=== PATIENT | female | born 1975 | race Caucasian/White ===

== ENCOUNTER → 2021-03-08 08:38 | Outpatient (BNVA) | payer MEDICARE, OTHER, SELFPAY | PROVIDERS: Visit Provider Psychiatry & Neurology Psychiatry | DX: F43.12 Post-traumatic stress disorder, chronic (principal); F41.1 Generalized anxiety disorder; F33.1 Major depressive disorder, recurrent, moderate; F12.20 Cannabis dependence, uncomplicated | CPT/HCPCS: 99204 ==

== ENCOUNTER → 2021-04-21 09:48 | Outpatient (BNVA) | payer MEDICARE, OTHER, SELFPAY | PROVIDERS: Visit Provider Psychiatry & Neurology Psychiatry | DX: F33.1 Major depressive disorder, recurrent, moderate (principal); F41.1 Generalized anxiety disorder; F43.12 Post-traumatic stress disorder, chronic; F12.20 Cannabis dependence, uncomplicated | CPT/HCPCS: 99213 ==

== ENCOUNTER → 2021-10-11 12:40 | Outpatient (BNVA) | payer MEDICARE, OTHER, SELFPAY | PROVIDERS: Visit Provider Psychiatry & Neurology Psychiatry | DX: F33.1 Major depressive disorder, recurrent, moderate (principal); F41.1 Generalized anxiety disorder; F43.12 Post-traumatic stress disorder, chronic; F12.20 Cannabis dependence, uncomplicated | CPT/HCPCS: 99213 ==

== ENCOUNTER → 2022-01-04 10:42 | Outpatient (BNVA) | payer MEDICARE, OTHER, SELFPAY | PROVIDERS: Visit Provider Psychiatry & Neurology Psychiatry | DX: F33.1 Major depressive disorder, recurrent, moderate (principal); F41.1 Generalized anxiety disorder; F43.12 Post-traumatic stress disorder, chronic; F12.20 Cannabis dependence, uncomplicated | CPT/HCPCS: 99213 ==

== ENCOUNTER → 2022-06-09 12:46 | Outpatient (BNVA) | payer MEDICARE, OTHER, SELFPAY | PROVIDERS: Visit Provider Podiatrist Foot & Ankle Surgery | DX: Q82.8 Other specified congenital malformations of skin (principal); M21.6X1 Other acquired deformities of right foot; M21.6X2 Other acquired deformities of left foot | CPT/HCPCS: 17110; 99204 ==

== ENCOUNTER → 2023-08-16 14:33 | Outpatient (BNVA) | payer MEDICARE, OTHER, SELFPAY | PROVIDERS: PCP Nurse Practitioner Family; Visit Provider Nurse Practitioner Family | DX: E04.9 Nontoxic goiter, unspecified (principal); Z79.899 Other long term (current) drug therapy; Z13.6 Encounter for screening for cardiovascular disorders; M77.9 Enthesopathy, unspecified | CPT/HCPCS: 73630; 80053; 80061; 81003; 83036; 83721; 84439; 84443; 84481; 85025 ==

== ENCOUNTER 2023-08-27 13:09 | Outpatient (CLI) | payer MEDICARE, OTHER, SELFPAY ==
--- NOTE | 2023-08-27 13:30 | US_ITS ---
WS: [email or web address] THYROID ULTRASOUND HISTORY: E04.9 - Nontoxic goiter, unspecified COMPARISON: None available. Right lobe: 3.1 cm x 3.0 cm x 6.4 cm (w x ap x l). Volume: 31.3 cm3. Enlarged thyroid. The entire RIGHT lobe is nodular in appearance with slight increased vascularity. C onfluent multinodular enlargement of the thyroid with echogenicity appearing very isoechoic. Left lobe: 1.7 cm x 1.5 cm x 4.3 cm (w x ap x l). Volume: 5.9 cm3. Normal sized gland. Heterogeneity throughout the gland. Isthmus: 0.7 cm. IMPRESSION: 1. Markedly enlarged RIGHT thyroid with multiple confluent nodules. There is no one discrete nodule the entire thyroid lobe is nodular consistent with a goiter. 2. Normal size LEFT thyroid lobe.
== END 2023-08-27 13:10 | disposition home or self-care (01) ==
LOC: RAD 13:11
PROVIDERS: PCP Nurse Practitioner Family; Visit Provider Nurse Practitioner Family
DX: E04.2 Nontoxic multinodular goiter (principal); Z13.6 Encounter for screening for cardiovascular disorders; Z79.899 Other long term (current) drug therapy
CPT/HCPCS: 76536

== ENCOUNTER → 2023-08-29 16:31 | Outpatient (BNVA) | payer MEDICARE, OTHER, SELFPAY | PROVIDERS: PCP Nurse Practitioner Family; Visit Provider Nurse Practitioner Family | DX: R31.9 Hematuria, unspecified (principal) | CPT/HCPCS: 81003; 87077; 87086; 87184 ==

== ENCOUNTER → 2023-09-12 10:16 | Outpatient (BNVA) | payer MEDICARE, OTHER, SELFPAY | PROVIDERS: PCP Nurse Practitioner Family; Visit Provider Podiatrist Foot & Ankle Surgery | DX: Q82.8 Other specified congenital malformations of skin; M21.6X1 Other acquired deformities of right foot; M21.6X2 Other acquired deformities of left foot | CPT/HCPCS: 99213 ==

== ENCOUNTER → 2023-10-11 09:59 | Outpatient (BNVA) | payer MEDICARE, OTHER, SELFPAY | PROVIDERS: PCP Nurse Practitioner Family; Visit Provider Podiatrist Foot & Ankle Surgery | DX: M76.62 Achilles tendinitis, left leg; M21.6X1 Other acquired deformities of right foot; M21.6X2 Other acquired deformities of left foot | CPT/HCPCS: 99213 ==

== ENCOUNTER → 2023-10-18 10:11 | Outpatient (BNVA) | payer MEDICARE, OTHER, SELFPAY | PROVIDERS: PCP Nurse Practitioner Family; Referring Provider Nurse Practitioner Family; Visit Provider Internal Medicine | DX: Z79.899 Other long term (current) drug therapy (principal); E04.2 Nontoxic multinodular goiter; E04.9 Nontoxic goiter, unspecified; K21.9 Gastro-esophageal reflux disease without esophagitis; R09.82 Postnasal drip | CPT/HCPCS: 99204 ==

== ENCOUNTER → 2024-01-14 11:01 | Outpatient (BNVA) | payer MEDICARE, OTHER, SELFPAY | PROVIDERS: PCP Nurse Practitioner Family; Visit Provider Nurse Practitioner Family | DX: D23.61 Other benign neoplasm of skin of right upper limb, including shoulder (principal); D23.71 Other benign neoplasm of skin of right lower limb, including hip; D22.4 Melanocytic nevi of scalp and neck; L91.8 Other hypertrophic disorders of the skin; L81.4 Other melanin hyperpigmentation; L57.8 Other skin changes due to chronic exposure to nonionizing radiation | CPT/HCPCS: 99203 ==

== ENCOUNTER → 2024-02-07 13:56 | Outpatient (BNVA) | payer MEDICARE, OTHER, SELFPAY | PROVIDERS: PCP Nurse Practitioner Family; Visit Provider Nurse Practitioner Family | DX: R10.9 Unspecified abdominal pain (principal) | CPT/HCPCS: 80053; 83036; 85025 ==

== ENCOUNTER → 2024-02-12 10:44 | Outpatient (BNVA) | payer MEDICARE, OTHER, SELFPAY | PROVIDERS: PCP Nurse Practitioner Family; Visit Provider Nurse Practitioner Family | DX: R10.84 Generalized abdominal pain (principal) | CPT/HCPCS: 74018 ==

== ENCOUNTER 2024-02-19 08:20 | Outpatient (CLI) | payer MEDICARE, OTHER, SELFPAY ==
--- NOTE | 2024-02-19 08:45 | MR_ITS ---
WS: [email or web address] MRI/MRCP OF THE ABDOMEN WITHOUT GADOLINIUM ENHANCEMENT TECHNIQUE: Coronal T2 Fase BH, Axial T2 Fase BH, Axial T2 FS BH, Zxial 3D James BH, Axial DWI BH, 2D MRCP Radial BH, 3D MRCP (Resp), and Axial 3D Dyn BH Post sequences. CLINICAL INFORMATION: R10.9 - Unspecified abdominal pain COMPARISON: CT 02/15/2023 FINDINGS: No hydronephrosis in either kidney. A few small renal cysts the largest LEFT kidney measuring 1.5 cm. LEFT adrenal adenoma measuring 2.3 cm. Hepatomegaly with diffuse fatty infiltration of the liver. Nor mal pancreas. Normal common bile duct. No intrahepatic biliary ductal dilatation. Normal gallbladder. Normal GE junction. Normal portal vein and splenic vein. Normal caliber upper abdominal aorta. Nonobs tructing renal calculi better visualized on the prior CT. No other suspicious findings. MR/MR abdomen wo/w con* [id number] Impression: 1. Hepatomegaly with diffuse fatty infiltration of the liver. 2. LEFT adrenal adenoma measuring 2.3 cm. 3. Bilateral renal cysts the largest LEFT kidney measuring 1.4 cm. No hydronep hrosis in either kidney. 4. No other acute findings.
[2024-02-19] MEDS: gadobenate dimeglumine 20 mL vial IV (10:25)
== END 2024-02-19 08:21 | disposition home or self-care (01) ==
LOC: RAD 08:20
PROVIDERS: PCP Nurse Practitioner Family; Visit Provider Nurse Practitioner Family
DX: R10.9 Unspecified abdominal pain (principal); R16.0 Hepatomegaly, not elsewhere classified; D35.02 Benign neoplasm of left adrenal gland; K76.0 Fatty (change of) liver, not elsewhere classified; Q61.02 Congenital multiple renal cysts
CPT/HCPCS: 74183; A9577

== ENCOUNTER 2024-03-05 10:11 | Outpatient (CLI) | payer MEDICARE, OTHER, SELFPAY ==
--- NOTE | 2024-03-05 10:20 | MM_ITS ---
WS: [email or web address] BILATERAL SCREENING DIGITAL TOMOSYNTHESIS MAMMOGRAM WITH CAD HISTORY: Z12.31 - Encounter for screening mammogram for malignant ... COMPARISON: 04/03/2019 Bilateral CC and MLO views with tomosynthesis and synthetic mammography submitted. Computer aided det ection analyzed. Breast composition: There are scattered areas of fibroglandular density. No suspicious masses, microc alcifications or architectural distortion. MM/[place] [id number] IMPRESSION: BI-RADS: 1-Negative FOLLOW UP: 1 Year Follow-up
== END 2024-03-05 10:12 | disposition home or self-care (01) ==
LOC: MOBLMAM 10:18
PROVIDERS: PCP Nurse Practitioner Family; Visit Provider Nurse Practitioner Family
DX: Z12.31 Encounter for screening mammogram for malignant neoplasm of breast (principal)
CPT/HCPCS: 77063; 77067

== ENCOUNTER 2024-03-24 12:17 | Oncology outpatient (recurring) (ONCR) | payer MEDICARE, OTHER, SELFPAY | END 2024-03-29 23:59 | disposition home or self-care (01) | PROVIDERS: PCP Nurse Practitioner Family; Visit Provider Internal Medicine Medical Oncology | DX: Z53.9 Procedure and treatment not carried out, unspecified reason (principal); D35.02 Benign neoplasm of left adrenal gland; Z87.891 Personal history of nicotine dependence; R10.9 Unspecified abdominal pain; R11.2 Nausea with vomiting, unspecified; R53.83 Other fatigue | CPT/HCPCS: 99204 ==

== ENCOUNTER → 2024-04-17 09:47 | Outpatient (BNVA) | payer MEDICARE, OTHER, SELFPAY | PROVIDERS: PCP Nurse Practitioner Family; Visit Provider Nurse Practitioner Family | DX: R53.83 Other fatigue (principal); M25.50 Pain in unspecified joint | CPT/HCPCS: 80053; 82607; 83550; 83735; 84443; 85025; 85651; 86140 ==

== ENCOUNTER → 2024-05-07 10:05 | Outpatient (BNVA) | payer MEDICARE, OTHER, SELFPAY | PROVIDERS: PCP Nurse Practitioner Family; Visit Provider Internal Medicine | DX: E04.9 Nontoxic goiter, unspecified (principal); E11.69 Type 2 diabetes mellitus with other specified complication; Z79.899 Other long term (current) drug therapy; E78.5 Hyperlipidemia, unspecified; D35.02 Benign neoplasm of left adrenal gland; E07.9 Disorder of thyroid, unspecified; R45.86 Emotional lability; Z79.84 Long term (current) use of oral hypoglycemic drugs | CPT/HCPCS: 36415; 80053; 82088; 82670; 83001; 83002; 84144; 84244; 84439; 84443; 84480; 99214 ==

== ENCOUNTER → 2024-05-16 11:45 | Outpatient (BNVA) | payer MEDICARE, OTHER, SELFPAY | PROVIDERS: PCP Nurse Practitioner Family; Visit Provider Internal Medicine | DX: E11.69 Type 2 diabetes mellitus with other specified complication (principal); E04.9 Nontoxic goiter, unspecified; E78.5 Hyperlipidemia, unspecified; D35.02 Benign neoplasm of left adrenal gland | CPT/HCPCS: 82384; 82530; 82570; 83835 ==

== ENCOUNTER → 2024-06-18 11:20 | Outpatient (BNVA) | payer MEDICARE, OTHER, SELFPAY | PROVIDERS: PCP Nurse Practitioner Family; Visit Provider Internal Medicine | DX: E04.9 Nontoxic goiter, unspecified (principal); E28.2 Polycystic ovarian syndrome | CPT/HCPCS: 99214 ==

== ENCOUNTER 2024-08-18 13:26 | Oncology outpatient (recurring) (ONCR) | payer MEDICARE, OTHER, SELFPAY ==
--- NOTE | 2024-08-18 13:45 | US_ITS ---
WS: [email or web address] THYROID ULTRASOUND HISTORY: thyroid goiter COMPARISON: 08/27/2023 Right lobe: 2.7 cm x 2.8 cm x 5.9 cm (w x ap x l). Volume: 21.6 cm3. Enlarged heterogeneous nodular thyroid. Predominant solid nodule with scattered cystic areas. There a re multiple confluent nodules throughout the gland without increased vascularity. Partially obscured nodular borders. Very similar to the prior study. Left lobe: 1.8 cm x 1.4 cm x 4.3 cm (w x ap x l). Volume: 5.1 cm3. Normal sized gland. There are multiple small cysts consistent with colloid nodules scattered througho ut the gland. Isthmus: 0.5 cm. US/US thyroid [id number] IMPRESSION: 1. Enlarged multinodular RIGHT thyroid gland. Very similar in appearance to th e prior study. Probably representing a goiter. No calcifications in these nodul es are not hypoechoic. 2. Multiple colloid cysts in the LEFT thyroid.
== END 2024-08-29 23:59 | disposition home or self-care (01) ==
PROVIDERS: PCP Nurse Practitioner Family; Visit Provider Internal Medicine Medical Oncology
DX: E04.9 Nontoxic goiter, unspecified (principal); E04.1 Nontoxic single thyroid nodule; E04.2 Nontoxic multinodular goiter
CPT/HCPCS: 76536

== ENCOUNTER 2024-08-22 11:10 | Outpatient (CLI) | payer MEDICARE, OTHER, SELFPAY ==
--- NOTE | 2024-08-22 11:13 | XR_ITS ---
WS: [email or web address] Lumbar spine, 6 views including AP, lateral in flexion, extension and neutral position in both obliqu es, 08/22/2024 Clinical Data: S39.012A - Strain of muscle, fascia and tendon of lower b... Comparison: None. Findings: No compression fractures or subluxation is seen. There is narrowing of the L5-S1 disc space. The tra nsverse processes and SI joints are normal. On the oblique films there is no spondylolysis. On flexion and extension there is no instability. The re are bilateral calcifications overlying the kidneys. XR/XR lumbar spine 6V w f/e [id number] Impression: 1. Degenerative disc narrowing at L5-S1. 2. No spondylolysis on oblique films. 3. No instability on flexion or extension. 4. Probable bilateral renal calculi.
--- NOTE | 2024-08-22 11:13 | XR_ITS ---
WS: [email or web address] Thoracic spine, 3 views, 08/22/2024 Clinical Data: S39.012A - Strain of muscle, fascia and tendon of lower b... Comparison: None. Findings: No compression fractures are seen. The disc heights are normal. The Spinal regions are normal. There is minimal osteoarthritis of the thoracic vertebral bodies. 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
== END 2024-08-22 11:11 | disposition home or self-care (01) ==
LOC: RAD 11:12
PROVIDERS: PCP Nurse Practitioner Family; Visit Provider Nurse Practitioner Family
DX: M51.27 Other intervertebral disc displacement, lumbosacral region (principal); N20.0 Calculus of kidney; E04.9 Nontoxic goiter, unspecified; D35.02 Benign neoplasm of left adrenal gland; K21.9 Gastro-esophageal reflux disease without esophagitis; R09.82 Postnasal drip; R45.86 Emotional lability
CPT/HCPCS: 72072; 72114; 99214

== ENCOUNTER 2024-08-30 06:30 | Outpatient (RCR) | payer MEDICARE, OTHER, SELFPAY | END 2024-09-26 23:59 | disposition home or self-care (01) | LOC: WPT 06:30 | PROVIDERS: Visit Provider Nurse Practitioner Family | DX: M54.9 Dorsalgia, unspecified (principal); G89.29 Other chronic pain | CPT/HCPCS: 97110; 97162 ==

== ENCOUNTER → 2024-10-08 13:33 | Outpatient (BNVA) | payer MEDICARE, OTHER, SELFPAY | PROVIDERS: Visit Provider Nurse Practitioner Women's Health | DX: Z01.419 Encounter for gynecological examination (general) (routine) without abnormal findings (principal); N94.9 Unspecified condition associated with female genital organs and menstrual cycle | CPT/HCPCS: 87624 ==

== ENCOUNTER 2024-10-30 10:55 | Outpatient (CLI) | payer MEDICARE, OTHER, SELFPAY ==
[2024-10-30 11:52] LABS: Alanine Aminotransferase 45 U/L (0-33); Albumin Level 4.5 g/dL (3.5-5.2); Alkaline Phosphatase 78 U/L (35-105); Anion Gap 15.3 (5-19); Aspartate Amino Transferase 38 U/L (0-32); Blood Urea Nitrogen 6 mg/dL (6-20); Calcium 9.4 mg/dL (8.5-10.5); Carbon Dioxide 26 mmol/L (22-29); Chloride 102 mmol/L (98-107); Free T4 Free Thyroxine 1.16 ng/dL (0.82-1.77); Globulin 3.1 g/dL (1.3-4.6); Glomerular Filtration Rate 132.2 mL/min (90-130); Glucose 142 mg/dL (65-115); Osmolality Calculated 288 mOsm/kg (285-295); Potassium 4.3 mmol/L (3.5-5.1); Sodium 139 mmol/L (136-145); Thyroid Stimulating Hormone 0.71 uIU/mL (0.27-4.20); Total Bilirubin 0.3 mg/dL (0.15-1.2); Total Protein 7.6 g/dL (6.6-8.7)
== END 2024-10-30 10:56 | disposition home or self-care (01) ==
LOC: LAB 10:57
PROVIDERS: PCP Nurse Practitioner Family; Visit Provider Internal Medicine
DX: E04.9 Nontoxic goiter, unspecified (principal); Z79.899 Other long term (current) drug therapy; E04.2 Nontoxic multinodular goiter; D35.02 Benign neoplasm of left adrenal gland
CPT/HCPCS: 36415; 80053; 84439; 84443; 99214

== ENCOUNTER 2025-01-20 10:43 | Outpatient (CLI) | payer MEDICARE, OTHER, SELFPAY ==
--- NOTE | 2025-01-20 12:00 | CT_ITS ---
WS: [email or web address] CT ABDOMEN WITH AND WITHOUT CONTRAST HISTORY: K42.9 - Umbilical hernia without obstruction or gangrene Contiguous single phase 5 mm axial imaging performed of the abdomen. Oral contrast has been provided. Coronal and sagittal reformats are submitted. All CT scans at [facility] use at least one of these dose optimization techniques: automated exposure control; mA and/or kV adjustment per patient size (includes targeted exams where dose is matched to clinical indication); or iterative reconstruction. IV CONTRAST: Omnipaque 350; 100 mL IV. Oral contrast: Yes. DLP: 945.42 mGy.cm COMPARISON: 02/15/2023 Lower thorax: Lung bases are clear. Heart is normal size. No hiatal hernia. Liver/biliary system: Mild hepatic steatosis and hepatomegaly. No intrahepatic duct dilatation. Normal portal vein. Gallbladder: Normal. No gallstones or wall thickening. No pericholecystic fluid. Pancreas: Normal size pancreas and pancreatic duct. No adjacent inflammation. Spleen: Normal size spleen. No mass or infarct. Adrenal glands: Normal RIGHT adrenal gland. LEFT adrenal mass with low Hounsfield units. Mass measures 2.0 x 2.4 cm and has been previously described. LEFT adrenal adenoma described on MRI from 02/19/2024. Right kidney: Normal size kidney. High density cortical mass measuring 8.9 mm extends laterally from the mid RIGHT kidney. Benign nonobstructing calcifications centrally. Left kidney: Mild enlargement and perinephric stranding. Renal pelvis and calyces are dilated. Proximal ureter is dilated. 8 mm calcification in the proximal LEFT ureter. The entire ureter is not imaged as only the CT abdomen was requested. 2 mm nonobstructing calcification lower pole LEFT kidney. 18 mm lower pole renal cyst. Aorta: Mild atherosclerosis with no aneurysm. Lymphadenopathy: None. Free fluid: None. GI tract: As visualized within the abdomen unremarkable. No obstruction. Abdominal wall: Supra umbilical abdominal wall is intact. No hernia identified. Visualized osseous structures: Unremarkable. CT/CT abdomen wo/w con [id number] IMPRESSION: 1. No ventral abdominal wall hernia identified. 2. LEFT adrenal adenoma 2.0 x 2.4 cm. 3. LEFT hydronephrosis. Proximal LEFT ureter is dilated secondary to 8 mm calc ification. Only a small portion of the ureter is included as only a CT of the a bdomen was requested. Distal ureter not imaged. Recommend evaluation by urology . 4. Hepatic steatosis and hepatomegaly. 5. Stable hypodense nodule measuring 8.9 mm from the lateral mid RIGHT kidney. Probably a complex cyst. No change since 02/15/2023. 6. Additional bilateral nonobstructing renal calcifications and a LEFT renal c yst.
[2025-01-20] MEDS: iohexol 350 mg/mL 500 mL Btl (per mL) PO (12:08)
[2025-01-20] MEDS: iohexol 350 mg/mL 500 mL Btl (per mL) IV (12:09)
== END 2025-01-20 10:44 | disposition home or self-care (01) ==
PROVIDERS: PCP Nurse Practitioner Family; Visit Provider Nurse Practitioner Family
DX: K42.9 Umbilical hernia without obstruction or gangrene (principal); K44.9 Diaphragmatic hernia without obstruction or gangrene; D35.02 Benign neoplasm of left adrenal gland; N13.30 Unspecified hydronephrosis; N28.82 Megaloureter; N28.89 Other specified disorders of kidney and ureter; K76.0 Fatty (change of) liver, not elsewhere classified; R16.0 Hepatomegaly, not elsewhere classified; N28.1 Cyst of kidney, acquired; R93.421 Abnormal radiologic findings on diagnostic imaging of right kidney; R93.422 Abnormal radiologic findings on diagnostic imaging of left kidney; I70.0 Atherosclerosis of aorta
CPT/HCPCS: 74170

== ENCOUNTER → 2025-02-12 10:00 | Outpatient (BNVA) | payer MEDICARE, OTHER, SELFPAY | PROVIDERS: PCP Nurse Practitioner Family; Visit Provider Student in an Organized Health Care Education/Training Program | DX: M62.08 Separation of muscle (nontraumatic), other site (principal) | CPT/HCPCS: 99203 ==

== ENCOUNTER → 2025-05-07 09:34 | Outpatient (BNVA) | payer MEDICARE, OTHER, SELFPAY | PROVIDERS: PCP Nurse Practitioner Family; Visit Provider Internal Medicine | DX: E04.9 Nontoxic goiter, unspecified (principal); K21.9 Gastro-esophageal reflux disease without esophagitis; R09.82 Postnasal drip; R45.86 Emotional lability; D35.02 Benign neoplasm of left adrenal gland | CPT/HCPCS: 99214 ==

== ENCOUNTER 2025-06-03 10:38 | Outpatient (CLI) | payer MEDICARE, OTHER, SELFPAY ==
--- NOTE | 2025-06-03 10:40 | MM_ITS ---
WS: [email or web address] BILATERAL SCREENING DIGITAL TOMOSYNTHESIS MAMMOGRAM WITH CAD HISTORY: SCREENING COMPARISON: 03/05/2024, 04/03/2019 Bilateral CC and MLO views with tomosynthesis and synthetic mammography submitted. Computer aided detection analyzed. Breast composition: The breasts are heterogeneously dense, which may obscure small masses. No suspicious masses, microcalcifications or architectural distortion. MM/MM scr tomosynthesis [id number] IMPRESSION: BI-RADS: 1 - Negative FOLLOW UP: 1 Year Follow-up
== END 2025-06-03 10:39 | disposition home or self-care (01) ==
LOC: MOBLMAM 10:41
PROVIDERS: PCP Nurse Practitioner Family; Visit Provider Nurse Practitioner Family
DX: Z12.31 Encounter for screening mammogram for malignant neoplasm of breast (principal); R92.333 Mammographic heterogeneous density, bilateral breasts
CPT/HCPCS: 77063; 77067